=== PATIENT | female | born 1985 | race Caucasian/White ===

== ENCOUNTER → 2018-08-10 16:58 | Outpatient (CLI) | payer OTHER, SELFPAY ==
[2018-08-11 15:22] LABS: HCG Quantitative /Beta subunit 48247 mIU/mL
[2018-08-12 17:37] LABS: Progesterone 11.6 ng/mL
== END ==
PROVIDERS: PCP Nurse Practitioner Family
DX: R79.89 Other specified abnormal findings of blood chemistry (principal); N91.2 Amenorrhea, unspecified
CPT/HCPCS: 36415; 84144; 84702

== ENCOUNTER → 2018-08-25 17:43 | Outpatient (CLI) | payer OTHER, SELFPAY ==
[2018-08-25 18:28] LABS: Add Manual Diff / Slide Review NO; Basophils Percent Auto 0.5 % (0-2); Eosinophils Percent Auto 1.1 % (2-4); Hematocrit 38.1 % (36-46); Hemoglobin 13.3 g/dL (12.0-16.0); Lymphocytes Percent Auto 21.4 % (25-40); Mean Corpuscular HGB Conc 34.9 % (30-36); Mean Corpuscular Hemoglobin 30.3 PG (26-34); Mean Corpuscular Volume 86.9 fL (80-100); Monocytes Percent Auto 7.1 % (3-14); Neutrophils Absolute Auto 11600 /uL (1500-7000); Neutrophils Percent Auto 69.9 % (50-75); Platelet Count 404 X10^3/uL (150-400); Red Blood Cell Count 4.39 X10^6/uL (4.0-5.2); Red Cell Distribution Width 12.8 % (11.6-14.8); White Blood Cell Count 16.5 X10^3/uL (4.5-11.0)
[2018-08-25 18:29] LABS: Hemoglobin A1C% w Est Avg Glu 5.2 % (4.0-6.0)
[2018-08-25 18:34] LABS: Glucose 87 mg/dL (70-100)
[2018-08-25 19:10] LABS: Appearance Urine UA CLEAR; Bilirubin Urine UA NEGATIVE (NEGATIVE); Color Urine UA YELLOW; Glucose Urine UA NEGATIVE (Normal); Hepatitis B Surface Antigen NEGATIVE s/c (NEGATIVE); Ketones Urine UA NEGATIVE (NEGATIVE); Leukocyte Esterase Urine UA NEGATIVE (NEGATIVE); Nitrite Urine UA NEGATIVE (Negative); Occult Blood Urine UA 2+ (Negative); Protein Urine UA NEGATIVE (Negative); Rubella Antibody IgG 17.7 IU/mL (>15); Specific Gravity Urine UA >=1.030 (1.000-1.035); Urobilinogen Urine UA 0.2 E.U./dL (0.2); pH Urine UA 5.5 (4.5-8.0)
[2018-08-25 19:13] LABS: Bacteria Urine None Seen; RBC Urine 1-5/HPF (0-5/HPF); WBC Urine 1-5/HPF (0-5/HPF)
[2018-08-25 19:27] LABS: HIV 1 and 2 Antibody NEGATIVE (NEGATIVE); Hep C Virus Ab w/Reflex Quant NEGATIVE s/c (NEGATIVE)
[2018-08-28 17:33] LABS: RPR Screen Nonreactive (Nonreactive)
[2018-08-31 09:44] LABS: HSV 2 IGG AB < 0.90 index (< 0.90); HSV1IGG < 0.90 index (< 0.90)
== END ==
PROVIDERS: PCP Nurse Practitioner Family
DX: Z34.81 Encounter for supervision of other normal pregnancy, first trimester (principal)
CPT/HCPCS: 36415; 80055; 81003; 81015; 82947; 83036; 86695; 86696; 86703; 86787; 86803; 86850; 86900; 86901; 87086

== ENCOUNTER → 2018-09-01 10:20 | Outpatient (CLI) | payer OTHER, SELFPAY ==
[2018-09-01 12:33] LABS: Urine N gonorrhoeae NOT DETECTED
[2018-09-01 13:04] LABS: Urine Chlamydia NOT DETECTED
== END ==
PROVIDERS: PCP Nurse Practitioner Family
DX: Z11.3 Encounter for screening for infections with a predominantly sexual mode of transmission (principal); Z11.8 Encounter for screening for other infectious and parasitic diseases; Z34.81 Encounter for supervision of other normal pregnancy, first trimester
CPT/HCPCS: 87491; 87591

== ENCOUNTER → 2018-09-26 17:03 | Outpatient (CLI) | payer OTHER, SELFPAY | PROVIDERS: PCP Nurse Practitioner Family | DX: Z3A.13 13 weeks gestation of pregnancy (principal) | CPT/HCPCS: 36415; 84163; 84702 ==

== ENCOUNTER → 2018-10-24 16:28 | Outpatient (CLI) | payer OTHER, SELFPAY ==
[2018-10-27 14:37] LABS: Sequential Screen 2nd Trimeste SCREEN NEGATIVE
== END ==
PROVIDERS: PCP Nurse Practitioner Family
DX: Z13.79 Encounter for other screening for genetic and chromosomal anomalies (principal); Z34.82 Encounter for supervision of other normal pregnancy, second trimester
CPT/HCPCS: 82105; 82677; 84163; 84702; 86336

== ENCOUNTER → 2018-11-17 09:32 | Outpatient (CLI) | payer OTHER, SELFPAY | PROVIDERS: PCP Nurse Practitioner Family | DX: Z34.82 Encounter for supervision of other normal pregnancy, second trimester (principal); Z3A.21 21 weeks gestation of pregnancy | CPT/HCPCS: 87086 ==

== ENCOUNTER → 2018-12-22 09:52 | Outpatient (CLI) | payer OTHER, SELFPAY ==
[2018-12-22 12:25] LABS: Hematocrit 32.7 % (36-46); Hemoglobin 11.4 g/dL (12.0-16.0)
[2018-12-22 13:08] LABS: GTT (PREG) 1 Hour PP 50gm Dose 155 mg/dL (76-139)
== END ==
PROVIDERS: PCP Nurse Practitioner Family
DX: Z34.82 Encounter for supervision of other normal pregnancy, second trimester (principal); Z3A.25 25 weeks gestation of pregnancy
CPT/HCPCS: 36415; 82950; 85014; 85018

== ENCOUNTER → 2019-01-05 08:01 | Outpatient (CLI) | payer OTHER, SELFPAY ==
[2019-01-05 09:47] LABS: Glucose Fasting 91 mg/dL (70-100)
[2019-01-05 10:09] LABS: Glucose 1 Hour 163 mg/dL (70-170)
[2019-01-05 11:25] LABS: Glucose 2 Hour 151 mg/dL (70-140)
[2019-01-05 12:16] LABS: Glucose Tol Interpretation INTERPRETATION
[2019-01-05 13:52] LABS: Glucose 3 Hour 127 mg/dL (70-115)
== END ==
PROVIDERS: PCP Nurse Practitioner Family
DX: O99.810 Abnormal glucose complicating pregnancy (principal)
CPT/HCPCS: 36415; 82951; 82952

== ENCOUNTER → 2019-03-02 11:54 | Outpatient (CLI) | payer OTHER, SELFPAY ==
[2019-03-03 13:57] LABS: Strep Grp B PCR NEG for Grp B Strep
== END ==
PROVIDERS: PCP Nurse Practitioner Family
DX: Z34.83 Encounter for supervision of other normal pregnancy, third trimester (principal); Z3A.35 35 weeks gestation of pregnancy
CPT/HCPCS: 87653

== ENCOUNTER → 2019-03-09 10:28 | Outpatient (CLI) | payer OTHER, SELFPAY | PROVIDERS: PCP Nurse Practitioner Family | DX: R35.0 Frequency of micturition (principal); R82.90 Unspecified abnormal findings in urine; Z34.83 Encounter for supervision of other normal pregnancy, third trimester | CPT/HCPCS: 87086 ==

== ENCOUNTER 2019-03-12 07:18 | Outpatient (CLI) | payer OTHER, SELFPAY | END 2019-03-12 08:25 | disposition home or self-care (01) | LOC: LABOR 07:56 → OB 03-14 12:44 | PROVIDERS: PCP Nurse Practitioner Family | DX: Z34.93 Encounter for supervision of normal pregnancy, unspecified, third trimester (principal); Z3A.37 37 weeks gestation of pregnancy | CPT/HCPCS: 59025; G0378; G0379 ==

== ENCOUNTER 2019-03-26 18:06 | Inpatient (IN) | payer OTHER, SELFPAY ==
[2019-03-26 20:22] LABS: Add Manual Diff / Slide Review NO; Basophils Absolute Auto 100 /uL (0-100); Basophils Percent Auto 0.5 % (0-2); Eosinophils Absolute Auto 100 /uL (0-450); Eosinophils Percent Auto 0.6 % (2-4); Hematocrit 32.6 % (36-46); Hemoglobin 11.1 g/dL (12.0-16.0); Lymphocytes Absolute Auto 2000 /uL (1100-4500); Mean Corpuscular Hemoglobin 29.3 PG (26-34); Mean Corpuscular Volume 86.3 fL (80-100); Monocytes Absolute Auto 800 /uL (0-900); Monocytes Percent Auto 6.8 % (3-14); Neutrophils Absolute Auto 9400 /uL (1500-7000); Neutrophils Percent Auto 76.1 % (50-75); Platelet Count 280 X10^3/uL (150-400); Red Blood Cell Count 3.78 X10^6/uL (4.0-5.2); Red Cell Distribution Width 13.6 % (11.6-14.8); White Blood Cell Count 12.4 X10^3/uL (4.5-11.0)
[2019-03-26] MEDS: miSOPROStol 25 MCG TABLET VAG (20:22)
[2019-03-26 20:29] VITALS: BP 121/70
[2019-03-26] MEDS: ZOLPIDEM 5 MG TABLET PO (22:46)
[2019-03-27] MEDS: miSOPROStol 25 MCG TABLET VAG (00:57)
[2019-03-27] MEDS: fentaNYL 100 MCG/2 ML INJ 50 MCG IV (04:19)
[2019-03-27] MEDS: LACTATED RINGERS 1,000 ML 100 ML IV (06:49)
[2019-03-27] MEDS: OXYTOCIN PREMIX 30 UNIT/500 ML PLAST..BAG IV (06:50)
--- NOTE | 2019-03-27 08:06 | P.HPOB_ITS ---
OB HPI Date/Time Date of admission: 03/27/19 Date Patient Seen: 03/27/19 Time Patient Seen: 08:00 History of Present Condition Chief complaint: Labor : 2 Para: 1 Estimated Date of Delivery: 04/01/19 Estimated Gestational Age (weeks): 39 2/7 Narrative: Geoff Waller is a 33 year old female two para one who is admitted for induction of labor at 39 and 2/7 weeks. The patient had a previous unstable lie and was brought in for version. The baby however converted to a vertex presentation. The patient's antepartum course has been uneventful. She has adequate fundal growth. Her blood pressures have remained normotensive. Her urines have remained negative for glucose and protein. Her 1 hour GTT was 156. A 3 hour GTT showed a fasting of 91, a 1 hour of 163, 2 hour 151, and a 3 hour of 127. These values are within normal limits. The patient was placed on 1800 calorie ADA diet. Her group B strep is negative. The patient's cervix was a Grant six. The patient was brought in for misoprostol cervical ripening. She received two courses. With increase of her cervix from 70% posterior and closed to 2 cm 80% cervix soft and mid position Indications Indication for induction OB: maternal discomfort and history of rapid labor History of Present care: good care and initiated at week # (9) Dating criteria: LMP confirmed by 1st trimester US Ultrasounds: normal 1st trimester US and normal mid trimester US Obstetrical complications: none Medical complications: none Narrative: Outside of the abnormal 1 hour glucose test the patient is had no abnormal values Preadmission Labs Blood type: O (+) positive -: Antibody screen: negative, Cystic fibrosis screen: unknown, GBS status: negative, HBsAG: negative, HIV: negative, HSV 1: negative, HSV 2: negative and RPR/VDLR: negative -: Chlamydia screen: detected (Negative) and Gonorrhea screen: detected (Negative) -: Rubella: immune and Varicella: immune HCT: 38 HCAB: negative PAP: Normal Integrated screen: Negative Sequential screen: Negative Cell-free DNA: Not done 1 hr GTT: 156 3 hr GTT: 1 hr (163), 2 hr (151) and 3 hr (127) Fasting blood glucose: 156 Prior (ies) History: 1. was induced at 41 weeks with a 10 hour labor and delivery of a 6 lb 6 oz male infant spontaneous vaginal delivery Evaluation Evaluation Baseline heart rate: 145 Variability: Moderate (11-25) monitor accelerations: Present monitor decelerations: Absent Uterine Contraction Intensity: Mild Category of Tracing: I Cervical dilation (cm): 2 Cervical effacement (%): 80 station: -2 Laboratory results: Laboratory Tests 03/26/19 03/26/19 19:37 19:37 WBC 12.4 H RBC 3.78 L Hgb 11.1 L Hct 32.6 L MCV 86.3 MCH 29.3 MCHC 34.0 RDW 13.6 Plt Count 280 Neut % (Auto) 76.1 H Lymph % (Auto) 16.0 L [place] % (Auto) 6.8 Eos % (Auto) 0.6 L Baso % (Auto) 0.5 Neut # (Auto) 9400 H Lymph # (Auto) 2000 [place] # (Auto) 800 Eos # (Auto) 100 Baso # (Auto) 100 Blood Type O Positive Antibody Screen Negative [facility] Social History Smoking Status: Never smoker Social History Smoking Status: Never smoker Meds Home Medications Medication Instructions Recorded Confirmed Type 1 tab PO DAILY 08/23/18 03/27/19 History vitamin,calcium,yezebnkc-ihly-ekivs acid tablet Allergies Allergy/AdvReac Type Severity Reaction Status Date / Time nickel Allergy Verified 03/26/19 22:28 Review of Systems Review of Systems All systems reviewed & are unremarkable except as noted in HPI and below Exam Const General: cooperative and healthy appearing [facility] Head: normal to inspection Ears: hearing grossly normal bilaterally Nose: external nose normal Face and sinus: normal facial exam Mouth: oral mucosae normal, lip normal, tongue normal and moist mucous membranes Teeth and gingiva: dentition normal Throat: posterior oropharynx normal Eyes General: appearance normal, both eyes and all related structures Neck Neck: normal visual inspection and full ROM Chest Chest: normal inspection of the chest and normal palpation of entire chest wall Breast inspection: normal inspection of the breasts and normal inspection of the axillae Breast Palpation: normal palpation of the breasts and normal palpation of the axillae Resp Effort & Inspection: normal respiratory effort Auscultation: clear to auscultation bilaterally Cardio Palpation: normal PMI Rate: regular rate Rhythm: regular rhythm Heart Sounds: S1 normal and S2 normal GI Inspection: normal to inspection Palpation: soft and no hepatosplenomegaly Percussion: normal to percussion Auscultation: normal bowel sounds External Female Exam: external appearance normal and normal appearance of the urethra Speculum Exam - Vagina: normal appearance of the vagina and normal vaginal discharge OB/External & Speculum: external exam normal Manual OB Exam: dilated 2, effaced 75% and station -2 Uterus Location (Fundal Height): 39 Presentation: vertex Estimated Weight (lbs): 7 Back/Spine/Pelvis Thoracic/Lumbar Spine: thoracic and lumbar spine normal to inspection Skin General: no rashes or lesions noted Neuro General: alert, oriented x3, tone normal and moves all extremities Cognition: normal cognition Speech: speech normal Gait: normal gait Motor: muscle tone normal throughout Sensory Exam: no sensory deficits noted Extrem General: normal to inspection and normal exam except as noted Psych Appearance: grossly normal and well kempt Mental Status: mental status grossly normal Speech and Movement: speech and movement normal Objective Labs Result Diagrams: 03/26/19 19:37 Labs: Laboratory Results - last 24 hr 03/26/19 03/26/19 19:37 19:37 WBC 12.4 H RBC 3.78 L Hgb 11.1 L Hct 32.6 L MCV 86.3 MCH 29.3 MCHC 34.0 RDW 13.6 Plt Count 280 Neut % (Auto) 76.1 H Lymph % (Auto) 16.0 L [place] % (Auto) 6.8 Eos % (Auto) 0.6 L Baso % (Auto) 0.5 Neut # (Auto) 9400 H Lymph # (Auto) 2000 [place] # (Auto) 800 Eos # (Auto) 100 Baso # (Auto) 100 Blood Type O Positive Antibody Screen Negative Assessment and Plan Assessment and Plan Assessment and Plan narrative: Term intrauterine History of rapid labors History of unstable lie Misoprostol cervical ripening Pitocin induction of labor Artificial rupture membrane
== END 2019-03-27 12:15 | disposition home or self-care (01) | DRG 833 ==
PROVIDERS: Obstetrics & Gynecology; PCP Nurse Practitioner Family
DX: O26.813 Pregnancy related exhaustion and fatigue, third trimester (principal); Z3A.39 39 weeks gestation of pregnancy
CPT/HCPCS: 59025; 59050; 59200; 85025; 86850; 86900; 86901; 96360; 96361; G0379; J2590; J3010

== ENCOUNTER 2019-04-09 07:01 | Inpatient (IN) | payer OTHER, SELFPAY ==
[2019-04-09] MEDS: LACTATED RINGERS 1,000 ML 100 ML IV ×3 (07:47→14:34)
[2019-04-09] MEDS: OXYTOCIN PREMIX 30 UNIT/500 ML PLAST..BAG IV (07:47)
[2019-04-09 07:49] VITALS: BP 119/85
[2019-04-09 08:07] LABS: Add Manual Diff / Slide Review NO; Basophils Absolute Auto 200 /uL (0-100); Basophils Percent Auto 1.3 % (0-2); Eosinophils Absolute Auto 100 /uL (0-450); Eosinophils Percent Auto 0.9 % (2-4); Hematocrit 35.6 % (36-46); Lymphocytes Absolute Auto 1800 /uL (1100-4500); Lymphocytes Percent Auto 15.2 % (25-40); Mean Corpuscular HGB Conc 33.8 % (30-36); Mean Corpuscular Volume 85.6 fL (80-100); Monocytes Absolute Auto 1000 /uL (0-900); Monocytes Percent Auto 8.2 % (3-14); Neutrophils Absolute Auto 8900 /uL (1500-7000); Neutrophils Percent Auto 74.4 % (50-75); Platelet Count 268 X10^3/uL (150-400); Red Blood Cell Count 4.16 X10^6/uL (4.0-5.2); Red Cell Distribution Width 14.3 % (11.6-14.8)
--- NOTE | 2019-04-09 08:11 | PM.OBHP.1 ---
OB HPI Date/Time Date of admission: 04/09/19 Date Patient Seen: 04/09/19 Time Patient Seen: 08:14 History of Present Condition Chief complaint: LABOR : 2 Para: 1 Estimated Date of Delivery: 04/01/19 Estimated Gestational Age (weeks): 41 09/11 Narrative: Geoff Waller is a 33 year old female two para one at 41 weeks of . Patient presents for induction of labor because of post data some period the patient is a uneventful . Indications Indication for induction OB: post dates History of Present care: good care, number of visits (13) and pounds weight gain (16) Dating criteria: LMP confirmed by 1st trimester US Ultrasounds: normal 1st trimester US and normal mid trimester US Obstetrical complications: none Medical complications: none Preadmission Labs Blood type: O (+) positive -: Antibody screen: negative, Cystic fibrosis screen: unknown, GBS status: negative, HBsAG: negative, HIV: negative, HSV 1: negative, HSV 2: negative and RPR/VDLR: negative -: Chlamydia screen: detected (Negative) and Gonorrhea screen: detected (Negative) -: Rubella: immune and Varicella: immune HCT: 38 HCAB: negative PAP: Normal Quad screen: Normal 1 hr GTT: 155 3 hr GTT: 1 hr (163), 2 hr (151) and 3 hr (127) Fasting blood glucose: 91 Prior (ies) History: 41 week induction with normal spontaneous vaginal delivery Evaluation Evaluation Baseline heart rate: 115 Variability: Moderate (11-25) monitor accelerations: Present monitor decelerations: Variable Uterine Contraction Intensity: Mild Category of Tracing: II Cervical dilation (cm): 3 Cervical effacement (%): 50 station: -2 Laboratory results: Laboratory Tests 04/09/19 07:40 WBC 12.0 H RBC 4.16 Hgb 12.0 Hct 35.6 L MCV 85.6 MCH 29.0 MCHC 33.8 RDW 14.3 Plt Count 268 Neut % (Auto) 74.4 Lymph % (Auto) 15.2 L [place] % (Auto) 8.2 Eos % (Auto) 0.9 L Baso % (Auto) 1.3 Neut # (Auto) 8900 H Lymph # (Auto) 1800 [place] # (Auto) 1000 H Eos # (Auto) 100 Baso # (Auto) 200 H PFSH Social History Smoking Status: Never smoker Social History Smoking Status: Never smoker Meds Home Medications Medication Instructions Recorded Confirmed Type 1 tab PO DAILY 08/23/18 04/09/19 History vitamin,calcium,oosicunr-zupl-rcroo acid tablet Allergies Allergy/AdvReac Type Severity Reaction Status Date / Time nickel Allergy Verified 03/26/19 22:28 Review of Systems Review of Systems All systems reviewed & are unremarkable except as noted in HPI and below Exam Vital Signs (past 8 hours): - 04/09/19 07:49 Blood Pressure 119/85 Const General: cooperative and healthy appearing [facility] Head: normal to inspection Ears: hearing grossly normal bilaterally Nose: external nose normal Face and sinus: normal facial exam Mouth: oral mucosae normal, lip normal, tongue normal and moist mucous membranes Teeth and gingiva: dentition normal Throat: posterior oropharynx normal Eyes General: appearance normal, both eyes and all related structures Neck Neck: normal visual inspection and full ROM Chest Chest: normal inspection of the chest and normal palpation of entire chest wall Breast inspection: normal inspection of the breasts and normal inspection of the axillae Breast Palpation: normal palpation of the breasts and normal palpation of the axillae Resp Effort & Inspection: normal respiratory effort Auscultation: clear to auscultation bilaterally Cardio Palpation: normal PMI Rate: regular rate Rhythm: regular rhythm Heart Sounds: S1 normal and S2 normal GI Inspection: normal to inspection Palpation: soft and no hepatosplenomegaly Percussion: normal to percussion Auscultation: normal bowel sounds OB/External & Speculum: external exam normal Manual OB Exam: dilated 3, effaced 50% and station -2 Uterus Location (Fundal Height): 38 Presentation: vertex Estimated Weight (lbs): 7 Back/Spine/Pelvis Thoracic/Lumbar Spine: thoracic and lumbar spine normal to inspection Skin General: no rashes or lesions noted Neuro General: alert, oriented x3, tone normal and moves all extremities Cognition: normal cognition Speech: speech normal Gait: normal gait Motor: muscle tone normal throughout Sensory Exam: no sensory deficits noted Extrem General: normal to inspection and normal exam except as noted Psych Appearance: grossly normal and well kempt Mental Status: mental status grossly normal Speech and Movement: speech and movement normal Objective Labs Result Diagrams: 04/09/19 07:40 Labs: Laboratory Results - last 24 hr 04/09/19 07:40 WBC 12.0 H RBC 4.16 Hgb 12.0 Hct 35.6 L MCV 85.6 MCH 29.0 MCHC 33.8 RDW 14.3 Plt Count 268 Neut % (Auto) 74.4 Lymph % (Auto) 15.2 L [place] % (Auto) 8.2 Eos % (Auto) 0.9 L Baso % (Auto) 1.3 Neut # (Auto) 8900 H Lymph # (Auto) 1800 [place] # (Auto) 1000 H Eos # (Auto) 100 Baso # (Auto) 200 H Assessment and Plan Assessment and Plan Assessment and Plan narrative: Postdate 41-,1/7 weeks Otherwise normal Plan is for Pitocin induction of labor and artificial rupture membranes
--- NOTE | 2019-04-09 08:26 | P.HPOB_ITS ---
OB HPI Date/Time Date of admission: 04/09/19 Date Patient Seen: 04/09/19 Time Patient Seen: 08:14 History of Present Condition Chief complaint: LABOR : 2 Para: 1 Estimated Date of Delivery: 04/01/19 Estimated Gestational Age (weeks): 41 09/11 Narrative: Geoff Waller is a 33 year old female two para one at 41 weeks of . Patient presents for induction of labor because of post data some period the patient is a uneventful . Indications Indication for induction OB: post dates History of Present care: good care, number of visits (13) and pounds weight gain (16) Dating criteria: LMP confirmed by 1st trimester US Ultrasounds: normal 1st trimester US and normal mid trimester US Obstetrical complications: none Medical complications: none Preadmission Labs Blood type: O (+) positive -: Antibody screen: negative, Cystic fibrosis screen: unknown, GBS status: negative, HBsAG: negative, HIV: negative, HSV 1: negative, HSV 2: negative and RPR/VDLR: negative -: Chlamydia screen: detected (Negative) and Gonorrhea screen: detected (Negative) -: Rubella: immune and Varicella: immune HCT: 38 HCAB: negative PAP: Normal Quad screen: Normal 1 hr GTT: 155 3 hr GTT: 1 hr (163), 2 hr (151) and 3 hr (127) Fasting blood glucose: 91 Prior (ies) History: 41 week induction with normal spontaneous vaginal delivery Evaluation Evaluation Baseline heart rate: 115 Variability: Moderate (11-25) monitor accelerations: Present monitor decelerations: Variable Uterine Contraction Intensity: Mild Category of Tracing: II Cervical dilation (cm): 3 Cervical effacement (%): 50 station: -2 Laboratory results: Laboratory Tests 04/09/19 07:40 WBC 12.0 H RBC 4.16 Hgb 12.0 Hct 35.6 L MCV 85.6 MCH 29.0 MCHC 33.8 RDW 14.3 Plt Count 268 Neut % (Auto) 74.4 Lymph % (Auto) 15.2 L [place] % (Auto) 8.2 Eos % (Auto) 0.9 L Baso % (Auto) 1.3 Neut # (Auto) 8900 H Lymph # (Auto) 1800 [place] # (Auto) 1000 H Eos # (Auto) 100 Baso # (Auto) 200 H PFSH Social History Smoking Status: Never smoker Social History Smoking Status: Never smoker Meds Home Medications Medication Instructions Recorded Confirmed Type 1 tab PO DAILY 08/23/18 04/09/19 History vitamin,calcium,sobjcyky-nigc-muszj acid tablet Allergies Allergy/AdvReac Type Severity Reaction Status Date / Time nickel Allergy Verified 03/26/19 22:28 Review of Systems Review of Systems All systems reviewed & are unremarkable except as noted in HPI and below Exam Vital Signs (past 8 hours): - 04/09/19 07:49 Blood Pressure 119/85 Const General: cooperative and healthy appearing [facility] Head: normal to inspection Ears: hearing grossly normal bilaterally Nose: external nose normal Face and sinus: normal facial exam Mouth: oral mucosae normal, lip normal, tongue normal and moist mucous membranes Teeth and gingiva: dentition normal Throat: posterior oropharynx normal Eyes General: appearance normal, both eyes and all related structures Neck Neck: normal visual inspection and full ROM Chest Chest: normal inspection of the chest and normal palpation of entire chest wall Breast inspection: normal inspection of the breasts and normal inspection of the axillae Breast Palpation: normal palpation of the breasts and normal palpation of the axillae Resp Effort & Inspection: normal respiratory effort Auscultation: clear to auscultation bilaterally Cardio Palpation: normal PMI Rate: regular rate Rhythm: regular rhythm Heart Sounds: S1 normal and S2 normal GI Inspection: normal to inspection Palpation: soft and no hepatosplenomegaly Percussion: normal to percussion Auscultation: normal bowel sounds OB/External & Speculum: external exam normal Manual OB Exam: dilated 3, effaced 50% and station -2 Uterus Location (Fundal Height): 38 Presentation: vertex Estimated Weight (lbs): 7 Back/Spine/Pelvis Thoracic/Lumbar Spine: thoracic and lumbar spine normal to inspection Skin General: no rashes or lesions noted Neuro General: alert, oriented x3, tone normal and moves all extremities Cognition: normal cognition Speech: speech normal Gait: normal gait Motor: muscle tone normal throughout Sensory Exam: no sensory deficits noted Extrem General: normal to inspection and normal exam except as noted Psych Appearance: grossly normal and well kempt Mental Status: mental status grossly normal Speech and Movement: speech and movement normal Objective Labs Result Diagrams: 04/09/19 07:40 Labs: Laboratory Results - last 24 hr 04/09/19 07:40 WBC 12.0 H RBC 4.16 Hgb 12.0 Hct 35.6 L MCV 85.6 MCH 29.0 MCHC 33.8 RDW 14.3 Plt Count 268 Neut % (Auto) 74.4 Lymph % (Auto) 15.2 L [place] % (Auto) 8.2 Eos % (Auto) 0.9 L Baso % (Auto) 1.3 Neut # (Auto) 8900 H Lymph # (Auto) 1800 [place] # (Auto) 1000 H Eos # (Auto) 100 Baso # (Auto) 200 H Assessment and Plan Assessment and Plan Assessment and Plan narrative: Postdate 41-,1/7 weeks Otherwise normal Plan is for Pitocin induction of labor and artificial rupture membranes
--- NOTE | 2019-04-09 15:31 | PM.OBPRVD ---
Events: Labor Induction Delivery date: 04/09/19 Intrapartal events: None Cervical ripening method: none Induction method: per pitocin protocol Delivery augmentation: rupture of membranes Delivery monitor: external FHT and external uterine Route of delivery: L&D Laceration Description: Perineal - 1st Degree Delivery repair: chromic Estimated blood loss (mL): 250 Anesthesia type: Epidural Narrative: Patient is a 33-year-old two para one who was at 41-,1/7 weeks. The patient was induced for post date is in period does not was begun and at 4 cm membranes were ruptured and fluid was clear. An epidural was placed. The patient made rapid progress to complete. She pushed and delivered a live-born male infant with scores eight at 1 minute nine at 5 minutes in good condition. She sustained a smallest of 1st degree tears which was repaired with 120 chromic suture. Plan for aftercare: Routine
[2019-04-09] MEDS: IBUPROFEN 600 MG TABLET PO (18:36)
[2019-04-10] MEDS: IBUPROFEN 600 MG TABLET PO ×2 (01:03→07:30)
[2019-04-10 05:29] LABS: Hematocrit 33.2 % (36-46); Hemoglobin 11.2 g/dL (12.0-16.0)
--- NOTE | 2019-04-10 08:16 | P.PNOB_ITS ---
Subjective - OB Patient comments: no complaints baby status: doing well [place] feeding status: exclusively breast feeding Narrative: Post spontaneous vaginal delivery and Pitocin induction Date Patient Seen: 04/10/19 Time Patient Seen: 08:13 Exam Narrative Exam Narrative: Fundus U minus two Lochia scant Objective Labs Result Diagrams: 04/10/19 05:10 Labs: Laboratory Results - last 24 hr 04/09/19 04/10/19 07:40 05:10 Hgb 11.2 L Hct 33.2 L Blood Type O Positive Antibody Screen Negative Assessment & Plan Plan day: 1 plan OB: routine care Comments: Doing well no Time Spent With Patient Total time spent is greater than 50% in coordination of care (as documented) at patient's floor/unit and/or counseling patient: less than 15 minutes
--- NOTE | 2019-04-10 08:18 | PM.OBDS.1 ---
Discharge Providers Date of admission: 04/09/19 07:01 Discharge Date: 04/10/19 Primary care physician: MARCIE Fernandez Consults: 04/09/19 15:50 Consult to Civil Engineering Drafter Routine Comment: Discharge provider: Blair Cameron MD Summary Date Patient Seen: 04/10/19 Time Patient Seen: 08:19 Peripartum Data Delivery Method: Natural Vaginal Laceration description: Perineal - 1st Degree Procedures: Spontaneous vaginal delivery Epidural anesthesia Status at Discharge Cognitive/behavioral status at discharge: oriented Functional status at discharge: independent ambulation Overall status at discharge: patient is progressing back to baseline Time Spent with Patient Total time spent providing and/or coordinating discharge services: Objective Labs Result Diagrams: 04/10/19 05:10 Labs: Laboratory Results - last 24 hr 04/09/19 04/10/19 07:40 05:10 Hgb 11.2 L Hct 33.2 L Blood Type O Positive Antibody Screen Negative Exam Narrative Exam Narrative: Fundus U minus two Lochia scant Discharge Plan Discharge Plan Patient Disposition: Home Discharge Med Rec/Prescriptions Prescriptions: New Dermoplast (with menthol) 20-0.5 % Aerosol 1 spray topical Q1HR PRN (Reason: perineal pain) Qty: 1 RF: 0 ibuprofen 600 mg Tablet 600 mg PO Q6HR PRN (Reason: Pain, Mild (1-3)) Qty: 14 RF: 0 docusate sodium 250 mg Capsule 250 mg PO DAILY Qty: 10 RF: 0 Uuv-O-Uebnbd Cream 1 applic topical PRN PRN (Reason: Tenderness) Qty: 1 RF: 0 Continued prenat.vits,sridevi,fxx-pwoy-nqtck tablet 1 tab PO DAILY RF: 0 Follow up/Referrals: Nabila Le ARNP [Primary Care Provider] - 05/08/19 Provider Discharge Instructions Diet: Diet as Tolerated Activity: Up ad chidi No coitus Skin/Wound/Dressing Care Report to your healthcare provider any signs of infection, such as:: chills, fever, increased pain, unusual drainage and unusual redness Discharge Data Primary Care Provider: Nabila Le Attending Provider: Blair Cameron Admit Date/Time: 04/09/19 07:01
[2019-04-10] MEDS: DOCUSATE 250 MG CAPSULE PO (09:40)
[2019-04-10] MEDS: PRENATAL VIT,CALC/IRON/FOLIC 1 TABLET 1 TAB PO (09:40)
[2019-04-10 13:37] VITALS: BP 126/79; PULSE 74; RESP 16; TEMP 36.9
== END 2019-04-10 15:30 | disposition home or self-care (01) | DRG 807 ==
PROVIDERS: PCP Nurse Practitioner Family
DX: O48.0 Post-term pregnancy (principal); Z37.0 Single live birth; Z3A.41 41 weeks gestation of pregnancy; O70.0 First degree perineal laceration during delivery
CPT/HCPCS: 01967; 36415; 59050; 59400; 85014; 85018; 85025; 86850; 86900; 86901; J2590

== ENCOUNTER → 2022-03-02 18:20 | Outpatient (ROUT) | payer OTHER, SELFPAY | PROVIDERS: PCP Nurse Practitioner Family; Visit Provider Obstetrics & Gynecology | DX: N90.89 Other specified noninflammatory disorders of vulva and perineum (principal) | CPT/HCPCS: 87255 ==